=== PATIENT | male | born 1995 | race African-American/Black ===

== ENCOUNTER 2019-11-21 15:54 | Emergency (ER) | payer BC ==
[~2019-11-21] VITALS: Ht 182.9 cm; Wt 74.8 kg
[~2019-11-21 15:54] MED LIST: ALBUTEROL2.5 MG/0.1 INH; CLARITIN-D 12 H1 TA1 PO; HYDROCODON-ACE1 EA12; NAPROSYN500 MG PO; NOHOMEMEDICATIONS; NORCO 5-325 TA1 EACH PO; ROBITUSSIN15 MG/5 ML PO; TESSALON PERLE100 MG PO; ZANTAC 150MG T150 MG PO
[2019-11-21 15:57] VITALS: BP 111/74
[2019-11-21] MEDS ORDERED: ERYTHROMYCIN E3.5 G3 OPHTHALMIC (16:33)
== END 2019-11-21 16:41 | disposition home or self-care (01) ==
LOC: ER 15:54
DX: H00.14 Chalazion left upper eyelid (principal)